=== PATIENT | female | born 1960 | race Caucasian/White ===

== ENCOUNTER 2018-11-20 09:41 | Emergency (ER) | payer BC ==
--- NOTE | 2018-11-20 09:45 | UC ---
Eye Complaint HPI - History of Current Complaint Stated Complaint: EYE IRRITATION Time Seen by Provider: 11/20/18 09:45 Discharge - Discharge Plan Referrals: No Primary Care Phys,NOPCP [Primary Care Provider] -
[2018-11-20 09:50] VITALS: BP 102/72
--- NOTE | 2018-11-20 10:00 | UC ---
Eye Complaint HPI - HPI Summary HPI Summary: Patient presents reporting irritation to her left eye this morning. Patient with some photophobia states it's red and clear discharge. Patient does wear contact lenses but hasn't had them in for 5 or 6 days. Patient states she's been and dry environments the last few days. Patient states her eye feels scratchy. Patient with foreign body sensation or scratch that she's experienced in the past. Patient's tetanus is up-to-date. Patient's medications reviewed this visit. Patient states her vision is not blurred. - History of Current Complaint Chief Complaint: UCEye Stated Complaint: EYE IRRITATION Time Seen by Provider: 11/20/18 09:45 Hx Obtained From: Patient Onset/Duration: Sudden Onset Timing: Constant Severity Initially: Moderate Severity Currently: Moderate Pain Intensity: 8 Pain Scale Used: 0-10 Numeric - Allergies/Home Medications Allergies/Adverse Reactions: Allergies Allergy/AdvReac Type Severity Reaction Status Date / Time No Known Allergies Allergy Verified 11/20/18 09:50 Home Medications: Home Medications Estradiol PATCH 0.075/DAY* [Climara PATCH 0.075 MG/DAY*] 1 patch .ROUTE WEEKLY 11/20/18 [History Confirmed 11/20/18] PMH/Surg Hx/FS Hx/Imm Hx Previously Healthy: Yes - Surgical History Surgical History: Yes Surgery Procedure, Year, and Place: shoulders and feet - Family History Known Family History: Positive: Non-Contributory - Social History Occupation: Employed Full-time Alcohol Use: Weekly Substance Use Type: None Smoking Status (MU): Never Smoked Tobacco Review of Systems All Other Systems Reviewed And Are Negative: Yes Eyes: Positive: Drainage, Eye Redness, Photophobia, Other - clear discharge Physical Exam - Summary Physical Exam Summary: Vital Signs Reviewed: Yes A+Ox3, no distress Eyes: visual acuity reviewed left eye injected, clear discharge no edema mild photophobia applied tetracaine after verbal consent. Pain resolved. Pt with + fluorscene uptake 5oclock left eye small no fb noted on cornea or under lid margins ENT: Hearing grossly normal TM x 2 clear, mmoist, uvula midline, no exudate, no erythema Neck: Positive: Supple Respiratory: Positive: No respiratory distress, No accessory muscle use + CTA throughout no w/r Cardiovascular: RRR nl s1, s2 no m/r CBT <2 sec abd soft + BS nt/nd no guarding, no distension Musculoskeletal Exam: AKBAR x 4 without difficulty Strength Intact, ROM Intact Neurological: Positive: Alert, + sensation throughout Psychological: Positive: Normal Response To Family Skin: Positive: no rash, no ecchymosis Triage Information Reviewed: Yes Vital Signs: Initial Vital Signs Temp 97.8 F 11/20/18 09:47 Pulse 60 11/20/18 09:47 Resp 16 11/20/18 09:47 BP 102/72 11/20/18 09:47 Pulse Ox 100 11/20/18 09:47 Eye Complaint Course/Dx - Course Course Of Treatment: pt woke with left eye pain, clear drainage and mild photophobia. contact lens wearer - not it x 5 days. Pt with small corneal abraison left eye - advised no contact x 1 week. ketoraolac drops. ophtho f/u prn. pt comfortable and in acreement wit hplan - Differential Dx/Diagnosis Provider Diagnosis: Corneal abrasion, left Discharge - Sign-Out/Discharge Documenting (check all that apply): Patient Departure All imaging exams completed and their final reports reviewed: No Studies - Discharge Plan Condition: Stable Disposition: HOME Prescriptions: Ketorolac 0.5% OPHTH (NF) 1 drop LEFT EYE QID PRN #1 btl PRN Reason: Pain Polymyx/Trimethoprim OPTH* [Polytrim OPHTH*] 2 drop BOTH EYES Q6HR #1 btl Patient Education Materials: Corneal Abrasion (ED) Referrals: No Primary Care Phys,NOPCP [Primary Care Provider] - Salazar Boucher MD [Medical Doctor] - Additional Instructions: - apply eye drops to affected every 4 times a day for the next 5 day -okay to alternate ibuprofen (Advil, Motrin) 600mg and tylenol every 3 hours for pain. Take with food -Okay to use eye drops (ketorolac) for eye pain as prescribed - wearing sunglasses will help with discomfort - do NOT wear contact lenses for 1 week. -Okay to purchase and use an eye patch for comfort if light is particularly bothering your -contact the tool specialist to schedule a follow-up or if you have any questions or concerns - Billing Disposition and Condition Condition: STABLE Disposition: Home
[2018-11-20] MEDS: Tetracaine 0.5% OPTH.SOL 4 ML* 1 DROP BTL ONE (10:05)
[2018-11-20] MEDS: Fluorescein Sodium TOPICAL* 1 MG TEST STRIP OPHTHALMIC ONE (10:05)
== END 2018-11-20 10:20 | disposition home or self-care (01) ==
LOC: UCEAST 09:41
DX: S05.02XA Injury of conjunctiva and corneal abrasion without foreign body, left eye, initial encounter (principal); X58.XXXA Exposure to other specified factors, initial encounter; Y93.84 Activity, sleeping; Y92.003 Bedroom of unspecified non-institutional (private) residence as the place of occurrence of the external cause
CPT/HCPCS: 99202; A9270-GY; G0463